=== PATIENT | female | born 1985 | race Caucasian/White ===

== ENCOUNTER 2019-02-21 11:36 | Emergency (ER) | payer OTHER ==
[2019-02-21 11:36] VITALS: BMI 22.1
--- NOTE | 2019-02-21 12:53 | ED PDOC ---
Arrival/HPI - General Time Seen by Provider: 02/21/19 11:46 Historian: Patient - History of Present Illness Narrative History of Present Illness (Text): 02/21/19 12:49 A 33 year old female presents to the emergency department for further evaluation of nausea, vomiting, and diarrhea. Patient notes that the symptoms began 3 days ago overnight after a BBQ. She notes she has not been seen for her symptoms and is complaining of vomiting and diarrhea. She reports that she is unable to tolerate PO. Patient's partner and 2 children with similar symptoms. She denies fevers, chills, headache, dizziness, chest pain, shortness of breath, dyspnea on exertion, cough, abdominal pain, back pain, neck pain, urinary/bowel changes, or any other complaint. Time/Duration: Other (3 days) Symptom Onset: Sudden Symptom Course: Unchanged Activities at Onset: Rest, Light Context: Home Associated Symptoms (Text): 02/21/19 13:44 Patient does not appear ill. Her 2 children and partner have similar illness. Past Medical History - Provider Review Nursing Documentation Reviewed: Yes - Infectious Disease Hx of Infectious Diseases: None - Tetanus Immunization Tetanus Immunization: Unknown - Past Medical History Past Medical History: No Previous - Psychiatric Hx Psychophysiologic Disorder: No Hx Anxiety: No Hx Bipolar Disorder: No Hx Depression: No Hx Emotional Abuse: No Hx Hallucinations: No Hx Panic Disorder: No Hx Post Traumatic Stress Disorder: No Hx Psychosis: No Hx Physical Abuse: No Hx Schizophrenia: No Hx Sexual Abuse: No Hx Substance Use: No - Past Surgical History Past Surgical History: No Previous - Surgical History Hx Section: Yes - Anesthesia Hx Anesthesia: No Hx Anesthesia Reactions: No Hx Malignant Hyperthermia: No - Suicidal Assessment Feels Threatened In Home Enviroment: No Family/Social History - Physician Review Nursing Documentation Reviewed: Yes Family/Social History: No Known Family HX Smoking Status: Heavy Smoker > 10 Cigarettes Daily Hx Alcohol Use: No Hx Substance Use: No Hx Substance Use Treatment: No Allergies/Home Meds Allergies/Adverse Reactions: Allergies morphine Allergy (Verified 02/21/19 12:59) tachycardia Review of Systems - Physician Review All systems were reviewed & negative as marked: Yes - Review of Systems Constitutional: Fatigue. absent: Fevers Respiratory: absent: SOB, Cough Cardiovascular: absent: Chest Pain, EDWARDS Gastrointestinal: Diarrhea, Nausea, Vomiting. absent: Abdominal Pain, Stool Changes Genitourinary Female: absent: Urine Output Changes Musculoskeletal: absent: Back Pain, Neck Pain Neurological: absent: Headache, Dizziness Physical Exam Vital Signs Reviewed: Yes Temperature: Afebrile Blood Pressure: Normal Pulse: Regular Respiratory Rate: Normal Appearance: Positive for: Well-Appearing, Non-Toxic, Comfortable Pain Distress: None Mental Status: Positive for: Alert and Oriented X 3 - Systems Exam Head: Present: Atraumatic, Normocephalic Pupils: Present: PERRL Extroacular Muscles: Present: EOMI Conjunctiva: Present: Normal Mouth: Present: Dry Pharnyx: No: ERYTHEMA, EXUDATE, TONSILS ENLARGED Neck: Present: Normal Range of Motion Respiratory/Chest: Present: Clear to Auscultation, Good Air Exchange. No: Respiratory Distress, Accessory Muscle Use Cardiovascular: Present: Regular Rate and Rhythm, Normal S1, S2. No: Murmurs Abdomen: No: Tenderness, Distention, Peritoneal Signs, Rebound, Guarding Back: Present: Normal Inspection Upper Extremity: Present: Normal Inspection. No: Cyanosis, Edema Lower Extremity: Present: Normal Inspection. No: Edema Neurological: Present: GCS=15, CN II-XII Intact, Speech Normal, Motor Func Grossly Intact Skin: Present: Warm, Dry, Normal Color. No: Rashes Psychiatric: Present: Alert, Oriented x 3, Normal Insight, Normal Concentration Medical Decision Making ED Course and Treatment: 02/21/19 12:53 Impression: A 33 year old female presents to the emergency department for further evaluation of nausea, vomiting, diarrhea s/p Q. Plan: -- Labs -- Zofran and IV Fluids -- Reassess and disposition Progress Notes: 02/21/19 14:51 Symptoms are improved. Discharged home accompanied by family to follow-up with PMD. Follow-up in ER as needed. Clear liquids overnight. - Lab Interpretations I have reviewed the lab results: Yes - Scribe Statement The provider has reviewed the documentation as recorded by the Scribe Nadiya Stevens Provider Scribe Attestation: All medical record entries made by the Scribe were at my direction and personally dictated by me. I have reviewed the chart and agree that the record accurately reflects my personal performance of the history, physical exam, medical decision making, and the department course for this patient. I have also personally directed, reviewed, and agree with the discharge instructions and disposition. Disposition/Present on Arrival - Present on Arrival Any Indicators Present on Arrival: No History of DVT/PE: No History of Uncontrolled Diabetes: No Urinary Catheter: No History of Decub. Ulcer: No History Surgical Site Infection Following: None - Disposition Have Diagnosis and Disposition been Completed?: Yes Diagnosis: Gastroenteritis, Nausea vomiting and diarrhea Disposition: HOME/ ROUTINE Disposition Time: 14:52 Patient Plan: Discharge Condition: IMPROVED Discharge Instructions (ExitCare): Viral Gastroenteritis, Nausea and Vomiting, Adult (DC), Diarrhea in Adolescents and Adults Additional Instructions: Clear liquids overnight. Follow-up with PMD. Follow-up in ER as needed. Prescriptions: Ondansetron ODT [Zofran ODT] 4 mg PO Q6 #20 odt Forms: WORK NOTE
[2019-02-21 13:04] VITALS: O2SAT 100
[2019-02-21] MEDS ORDERED: Sodium Chloride 0.9% 1,000 ML IV STA (13:05)
[2019-02-21 14:21] LABS: BASO # 0.01 K/mm3 (0.0-2.0); BASO % 0.2 % (0.0-3.0); EOS # 0.2 (0.0-0.7); EOS % 3.2 % (1.5-5.0); LYMPH # 1.6 (1.2-3.4); LYMPH % 24.7 % (22.0-35.0); MEAN CORPUSCULAR HEMOGLOBIN 29.9 pg (25.0-35.0); MEAN CORPUSCULAR HGB CONC 32.8 g/dl (31.0-37.0); MONO # 0.4 (0.1-0.6); MONO % 6.1 % (1.0-6.0); RBC 4.35 10^6/uL (3.5-6.1); RED CELL DISTRIBUTION WIDTH 12.9 % (11.5-14.5); WHITE BLOOD COUNT 6.6 10^3/uL (4.5-11.0)
[2019-02-21 14:27] VITALS: RESP 18; TEMP 98.6
[2019-02-21 14:34] LABS: ALB/GLOB RATIO 1.3 (1.1-1.8); ALBUMIN 4.3 g/dL (3.0-4.8); ALT/SGPT 23 U/L (7-56); AST/SGOT 22 U/L (14-36); BLOOD UREA NITROGEN 11 mg/dL (7-21); CALCIUM 8.7 mg/dL (8.4-10.5); GFR NON-AFRICAN AMERICAN > 60; LIPASE 54 U/L (23-300)
[2019-02-21 16:16] VITALS: BP 110/76; PULSE 67
== END 2019-02-21 16:17 | disposition home or self-care (01) ==
LOC: ED 11:36
DX: K52.9 Noninfective gastroenteritis and colitis, unspecified (principal)
CPT/HCPCS: 80053; 81025; 83690; 83735; 84703; 85025; 96361; 96374; 99283; J2405; J7030